=== PATIENT | male | born 1950 | race Caucasian/White ===

== ENCOUNTER 2016-07-12 00:01 | Outpatient (POV) | END 2016-07-12 00:02 | disposition home or self-care (01) | LOC: OUTPT 00:01 | PROVIDERS: ATTEND Otolaryngology | DX: H91.90 Unspecified hearing loss, unspecified ear (principal) | CPT/HCPCS: 92557; 92567 ==

== ENCOUNTER 2016-07-26 00:01 | Outpatient (POV) | END 2016-07-26 00:02 | LOC: OUTPT 00:01 | PROVIDERS: ATTEND Otolaryngology | DX: H69.90 Unspecified Eustachian tube disorder, unspecified ear (principal) | CPT/HCPCS: 92557; 92567 ==

== ENCOUNTER 2017-12-11 09:55 | Day surgery (SDC) ==
[2017-12-11] MEDS ORDERED: LIDOCAINE 1% 20 ML MDV ID STA (10:57)
[2017-12-11] MEDS ORDERED: DIPRIVAN 20 ML VIAL IVP ONE (11:25)
[2017-12-11 15:24] VITALS: BP 122/56; TEMP 97.5
--- NOTE | 2017-12-12 13:35 | OP ---
PROCEDURE: COLONOSCOPY TO THE CECUM. ENDOSCOPIST: Cady GALLAGHER M.D. INDICATION: HISTORY OF ADENOMATOUS POLYPS INSTRUMENT: [employer]-190. MEDICATION: PER ANESTHESIA. PROCEDURE: The patient was positioned for colonoscopy. The digital rectal exam was negative. The colonoscope was inserted through the anus and advanced to the cecum. The cecum was identified using the ileocecal valve and the appendiceal orifice as landmarks. The scope was slowly withdrawn through an adequately prepped colon. [place] Bowel Prep Score 7. Careful inspection made of each colonic segment. Scope withdrawn in circumferential fashion. Care was made to inspect the proximal side of the ileocecal valve, haustral folds and flexures and rectal valves. A few scattered diverticuli were noted in the left colon. The retroflex exam was otherwise normal. The patient tolerated the procedure without immediate complication. Withdraw time 9 minutes and 28 second. PLAN: 1. Suggest repeat colonoscopy for surveillance in 5 years. CC: Dr. Ezequiel THOMPSON
== END 2017-12-11 12:30 | disposition home or self-care (01) ==
LOC: SURG 09:55
PROVIDERS: ATTEND Internal Medicine Gastroenterology
DX: K57.30 Diverticulosis of large intestine without perforation or abscess without bleeding (principal); Z86.010 Personal history of colon polyps